=== PATIENT | female | born 1965 | race African-American/Black ===

== ENCOUNTER → 2021-07-13 | Outpatient (CLI) | payer BC ==
[~2021-07-13] MED LIST: HYDR25TA10 PO; IBUP800T19 PO; LEVO88TA4 PO; MEDR150D3 IM; NAPR-683 PO; PHEN37.599 PO; SUMA100T3 PO
--- NOTE | 2021-07-13 12:59 | RAD ---
EXAMINATION: US ABDOMEN OR LOWER BACK LIMITED 07/13/2021 8:11 AM INDICATION: Right upper quadrant pain TECHNIQUE: Fang scale and color Doppler ultrasound images of the right upper quadrant were obtained. COMPARISON: None. FINDINGS: Liver: The liver is normal in size measuring 16.5 cm in length. There is diffusely increased hepatic echogenicity. No focal liver lesion. Gallbladder: The gallbladder is mildly distended. No cholelithiasis or sludge. The gallbladder wal l is normal in thickness measuring 2 mm. Bile ducts: The common bile duct is normal measuring 6 mm. No intrahepatic biliary duct dilatation. Right kidney: The right kidney measures 10.3 x 5.2 x 3.8 cm. The inferior right renal pole is obscure d due to bowel shadowing. Normal cortical thickness and echogenicity. No hydronephrosis. There is a 3.6 cm anechoic simple cyst in the superior right renal pole. Other: Abdominal aorta, inferior vena cava, and pancreas are obscured by bowel gas. IMPRESSION: 1. Hepatic steatosis. 2. 3.6 cm simple right renal cyst. 3. Midline structures and the inferior right renal pole are obscured by bowel gas. Electronically signed by: Cassi Guerrero MD (07/13/2021 12:56 PM) [id number]
== END ==
LOC: US 07:50
PROVIDERS: ATTEND Physician Assistant Medical
DX: K76.0 Fatty (change of) liver, not elsewhere classified (principal); N28.1 Cyst of kidney, acquired; K82.8 Other specified diseases of gallbladder
CPT/HCPCS: 76705